=== PATIENT | male | born 1970 | race Caucasian/White ===

== ENCOUNTER → 2017-12-16 | Outpatient (CLI) | payer OTHER | END | disposition home or self-care (01) | LOC: US 09:31 | DX: K76.0 Fatty (change of) liver, not elsewhere classified (principal); M25.562 Pain in left knee; R07.9 Chest pain, unspecified ==

== ENCOUNTER → 2019-03-31 | Outpatient (CLI) | payer OTHER | END | disposition home or self-care (01) | LOC: RAD 16:07 | DX: M79.89 Other specified soft tissue disorders (principal) ==

== ENCOUNTER → 2020-03-14 | Outpatient (CLI) | payer OTHER ==
[2020-03-14 13:52] LABS: FREE T4 1.3 ng/dl (0.76-1.46)
[2020-03-14 13:56] LABS: THYROID STIM HORMONE (HS) 1.11 uIU/ml (0.358-4.75)
== END | disposition home or self-care (01) ==
LOC: LAB 12:37
PROVIDERS: Internal Medicine
DX: M62.830 Muscle spasm of back (principal)

== ENCOUNTER → 2020-07-10 | Outpatient (CLI) | payer OTHER | END | disposition home or self-care (01) | LOC: US 09:30 | PROVIDERS: ATTEND Internal Medicine | DX: R19.02 Left upper quadrant abdominal swelling, mass and lump (principal) ==

== ENCOUNTER 2021-05-20 12:26 | Emergency (ER) | payer OTHER ==
[~2021-05-20] VITALS: Ht 165.1 cm; Wt 81.6 kg
== END 2021-05-20 16:52 | disposition home or self-care (01) ==
LOC: ED 12:26
DX: S01.511A Laceration without foreign body of lip, initial encounter (principal); W11.XXXA Fall on and from ladder, initial encounter; Y93.89 Activity, other specified; Y92.89 Other specified places as the place of occurrence of the external cause; Y99.8 Other external cause status

== ENCOUNTER 2022-03-20 19:39 | Emergency (ER) | payer OTHER ==
[~2022-03-20] VITALS: Ht 165.1 cm; Wt 77.1 kg
[2022-03-20] MEDS ORDERED: IBUPROFEN600 MG PO (23:04)
== END 2022-03-21 00:10 | disposition home or self-care (01) ==
LOC: ED 19:39
DX: S89.92XA Unspecified injury of left lower leg, initial encounter (principal); W20.8XXA Other cause of strike by thrown, projected or falling object, initial encounter; Y93.89 Activity, other specified; Y92.89 Other specified places as the place of occurrence of the external cause; Y99.8 Other external cause status

== ENCOUNTER → 2022-04-10 | Outpatient (CLI) | payer OTHER ==
[~2022-04-10] MED LIST: IBUPROFEN600 MG PO
[2022-04-11 07:07] LABS: HBSAG Negative (Negative); HEP B CORE AB, IGM Negative (Negative); HEPATITIS A AB IGM Negative (Negative); HEPATITIS C ANTIBODY <0.1 (0.0-0.9)
== END | disposition home or self-care (01) ==
LOC: LAB 00:08 → US 10:30
PROVIDERS: ATTEND Internal Medicine
DX: R74.01 Elevation of levels of liver transaminase levels (principal); K76.0 Fatty (change of) liver, not elsewhere classified

== ENCOUNTER 2022-12-07 07:32 | Emergency (ER) | payer OTHER ==
[~2022-12-07] VITALS: Wt 79.4 kg
[2022-12-07 08:35] LABS: BASO # 0.1 10*3/uL (0.0-0.1); BASO % 0.6 % (0.0-1.0); EOS # 0.1 10*3/uL (0.0-0.4); EOS % 1.6 % (1.0-4.0); HEMATOCRIT 44.5 % (42.0-52.0); LYMPH # 2.4 10*3/uL (1.3-4.4); LYMPH % 30.6 % (27.0-41.0); MEAN CELL VOLUME 86.9 fl (80.0-94.0); MEAN CORPUSCULAR HGB 30.1 pg (27.0-31.0); MEAN CORPUSCULAR HGB CONC 34.6 g/dl (33.0-37.0); MONO # 0.6 10*3/uL (0.1-1.0); MONO % 6.9 % (3.0-9.0); NEUT # 4.8 10*3/uL (2.3-7.9); NEUT % 59.9 % (47.0-73.0); PLATELET COUNT AUTOMATED 231 10*3/uL (130-400); RED BLOOD COUNT 5.12 10*6/uL (4.50-5.90)
[2022-12-07 08:49] LABS: INTERNATIONAL NORM RATIO 0.9 (2.0-3.5)
[2022-12-07 09:02] LABS: ALKALINE PHOSPHATASE 107 U/L (46-116); BUN 10 mg/dl (9-23); CHLORIDE 101 mmol/L (98-107); POTASSIUM 4.1 mmol/L (3.4-5.1); SGPT/ALT 50 U/L (10-49); TOTAL PROTEIN 6.8 gm/dL (6.0-8.0)
[2022-12-07] MEDS ORDERED: ONDANSETRON4 MG SL (10:30)
== END 2022-12-07 10:39 | disposition home or self-care (01) ==
LOC: ED 07:32
PROVIDERS: Internal Medicine
DX: A08.4 Viral intestinal infection, unspecified (principal); F10.90 Alcohol use, unspecified, uncomplicated

== ENCOUNTER → 2023-01-06 | Outpatient (CLI) | payer OTHER ==
[~2023-01-06] MED LIST changes: +ONDANSETRON4 MG SL
== END | disposition home or self-care (01) ==
LOC: CT 01:04
PROVIDERS: ATTEND Internal Medicine
DX: R91.1 Solitary pulmonary nodule (principal)

== ENCOUNTER → 2023-01-21 | Outpatient (CLI) | payer OTHER | END | disposition home or self-care (01) | LOC: RAD 12:17 | PROVIDERS: ATTEND Internal Medicine | DX: M25.562 Pain in left knee (principal) ==

== ENCOUNTER → 2023-07-24 | Outpatient (CLI) | payer OTHER ==
[2023-07-24 16:12] LABS: BASO # 0.1 10*3/uL (0.0-0.1); BASO % 0.7 % (0.0-1.0); EOS # 0.1 10*3/uL (0.0-0.4); LYMPH # 3.7 10*3/uL (1.3-4.4); LYMPH % 27.3 % (27.0-41.0); MEAN CELL VOLUME 87.7 fl (80.0-94.0); MEAN CORPUSCULAR HGB 29.1 pg (27.0-31.0); MEAN CORPUSCULAR HGB CONC 33.2 g/dl (33.0-37.0); MONO % 7.3 % (3.0-9.0); NEUT # 8.6 10*3/uL (2.3-7.9); NEUT % 62.9 % (47.0-73.0); PLATELET COUNT AUTOMATED 227 10*3/uL (130-400); RED BLOOD COUNT 5.36 10*6/uL (4.50-5.90); WHITE BLOOD COUNT 13.6 10*3/uL (4.8-10.8)
[2023-07-24 16:42] LABS: ALKALINE PHOSPHATASE 105 U/L (46-116); BUN 10 mg/dl (9-23); CHLORIDE 104 mmol/L (98-107); FREE T4 1.51 ng/dl (0.89-1.76); SGPT/ALT 37 U/L (10-49)
== END | disposition home or self-care (01) ==
LOC: LAB 15:43
PROVIDERS: ATTEND Internal Medicine
DX: R25.2 Cramp and spasm (principal)

== ENCOUNTER → 2023-08-25 | Outpatient (CLI) | payer OTHER ==
[2023-08-25 12:31] LABS: BASO # 0.1 10*3/uL (0.0-0.1); BASO % 0.5 % (0.0-1.0); EOS # 0.2 10*3/uL (0.0-0.4); EOS % 1.6 % (1.0-4.0); HEMATOCRIT 47.5 % (42.0-52.0); LYMPH # 3.9 10*3/uL (1.3-4.4); LYMPH % 31.3 % (27.0-41.0); MEAN CELL VOLUME 87.2 fl (80.0-94.0); MEAN CORPUSCULAR HGB 30.3 pg (27.0-31.0); MEAN CORPUSCULAR HGB CONC 34.7 g/dl (33.0-37.0); MEAN PLATELET VOLUME 9.9 fl (9.6-12.3); MONO # 1.2 10*3/uL (0.1-1.0); MONO % 9.6 % (3.0-9.0); NEUT # 7.1 10*3/uL (2.3-7.9); NEUT % 56.4 % (47.0-73.0); PLATELET COUNT AUTOMATED 257 10*3/uL (130-400); RED BLOOD COUNT 5.45 10*6/uL (4.50-5.90); RED CELL DISTRI WIDTH 13.2 % (0-14.5); WHITE BLOOD COUNT 12.5 10*3/uL (4.8-10.8)
== END | disposition home or self-care (01) ==
LOC: LAB 11:55
PROVIDERS: ATTEND Internal Medicine
DX: D72.829 Elevated white blood cell count, unspecified (principal)

== ENCOUNTER 2024-05-07 19:35 | Emergency (ER) | payer SELFPAY ==
[~2024-05-07] VITALS: Wt 78.0 kg
[2024-05-07] MEDS ORDERED: VIBRAMYCIN100 MG PO (20:23)
[2024-05-07] MEDS ORDERED: Ketorolac Tromethamine 60 MG/2 ML VIAL IM ONE (20:25)
[2024-05-07] MEDS ORDERED: Acetaminophen/Hydrocodone 5 MG/325 MG TABLET PO ONE (20:25)
[2024-05-07] MEDS ORDERED: Doxycycline Hyclate 100 MG CAP PO ONE (20:25)
== END 2024-05-07 20:50 | disposition home or self-care (01) ==
LOC: ED 19:35
DX: L02.11 Cutaneous abscess of neck (principal)

== ENCOUNTER 2025-03-31 13:42 | Emergency (ER) | payer OTHER ==
[~2025-03-31] VITALS: Ht 165.1 cm; Wt 77.1 kg
[~2025-03-31 13:42] MED LIST changes: +VIBRAMYCIN100 MG PO
[2025-03-31] MEDS ORDERED: LISSAMINE GREEN 1.5 MG STRIP OP ONE (14:30)
[2025-03-31] MEDS ORDERED: Tetracaine Hydrochloride 0.5% 4 ML BOT OPH ONE (14:30)
[2025-03-31] MEDS ORDERED: ERYTHROMYCIN OPH1 GM OPH (14:54)
[2025-03-31] MEDS ORDERED: ERYTHROMYCIN 1 GM TUBE OPH ONE (14:55)
== END 2025-03-31 14:59 | disposition home or self-care (01) ==
LOC: ED 13:42
DX: S05.01XA Injury of conjunctiva and corneal abrasion without foreign body, right eye, initial encounter (principal); I10 Essential (primary) hypertension; E78.5 Hyperlipidemia, unspecified; Z88.6 Allergy status to analgesic agent; W22.8XXA Striking against or struck by other objects, initial encounter; Y93.89 Activity, other specified; Y92.89 Other specified places as the place of occurrence of the external cause; Y99.8 Other external cause status

== ENCOUNTER 2025-05-31 11:28 | Emergency (ER) | payer OTHER ==
[~2025-05-31] VITALS: Ht 165.1 cm; Wt 76.2 kg
[~2025-05-31 11:28] MED LIST changes: +ERYTHROMYCIN OPH1 GM OPH
[2025-05-31] MEDS ORDERED: Acetaminophen/Oxycodone 5 MG/325 MG TABLET PO ONE (12:45)
[2025-05-31] MEDS ORDERED: METHOCARBAMOL750 M1 PO (13:52)
== END 2025-05-31 13:54 | disposition home or self-care (01) ==
LOC: ED 11:28
DX: S39.012A Strain of muscle, fascia and tendon of lower back, initial encounter (principal); M47.816 Spondylosis without myelopathy or radiculopathy, lumbar region; F10.90 Alcohol use, unspecified, uncomplicated; Z88.8 Allergy status to other drugs, medicaments and biological substances; X50.9XXA Other and unspecified overexertion or strenuous movements or postures, initial encounter; Y93.89 Activity, other specified; Y92.89 Other specified places as the place of occurrence of the external cause; Y99.8 Other external cause status; Y90.9 Presence of alcohol in blood, level not specified